=== PATIENT | female | born 1965 | race Caucasian/White ===

== ENCOUNTER → 2016-12-31 | Outpatient (REF) ==
[2015-06-02 18:03] VITALS: BP 138/68
[~2016-12-31] MED LIST: AUGMENTIN 875-1 EACH PO; NORCO 325 MG-51 TAB PO
== END ==
LOC: LAB 00:18
DX: Z01.89 Encounter for other specified special examinations (principal)

== ENCOUNTER → 2018-01-03 | Emergency (ER) | payer BC ==
[2018-01-03 06:55] VITALS: BP 131/101
== END | disposition left against medical advice (07) ==
LOC: ED 06:50
DX: T16.1XXA Foreign body in right ear, initial encounter (principal); Z53.21 Procedure and treatment not carried out due to patient leaving prior to being seen by health care provider

== ENCOUNTER → 2019-06-01 | Outpatient (CLI) | payer BC ==
[2018-01-03 06:55] VITALS: BP 131/101
== END ==
LOC: MAMMO 10:39
DX: Z12.31 Encounter for screening mammogram for malignant neoplasm of breast (principal)

== ENCOUNTER → 2019-06-13 | Day surgery (SDC) | payer BC ==
[2018-01-03 06:55] VITALS: BP 131/101
== END ==
LOC: MSO 07:13
DX: Z12.11 Encounter for screening for malignant neoplasm of colon (principal); K63.5 Polyp of colon
CPT/HCPCS: 00811; J2704; J3010; J7120

== ENCOUNTER 2020-06-30 15:44 | Emergency (ER) | payer BC ==
[~2020-06-30] VITALS: Wt 71.0 kg
[2020-06-30 15:52] VITALS: BP 122/84
== END 2020-06-30 16:18 | disposition left against medical advice (07) ==
LOC: ED 15:44
DX: S01.81XA Laceration without foreign body of other part of head, initial encounter (principal); X58.XXXA Exposure to other specified factors, initial encounter; Y92.009 Unspecified place in unspecified non-institutional (private) residence as the place of occurrence of the external cause

== ENCOUNTER → 2020-08-14 | Outpatient (CLI) | payer BC | LOC: MAMMO 10:30 | DX: Z13.820 Encounter for screening for osteoporosis (principal); M85.80 Other specified disorders of bone density and structure, unspecified site ==

== ENCOUNTER → 2021-08-27 | Outpatient (CLI) | payer BC, OTHER | LOC: RAD 07:25 | DX: R10.9 Unspecified abdominal pain (principal) ==

== ENCOUNTER → 2023-02-17 | Outpatient (CLI) | payer BC | LOC: MAMMO 14:26 | DX: Z12.31 Encounter for screening mammogram for malignant neoplasm of breast (principal) ==